=== PATIENT | male | born 1970 | race Caucasian/White ===

== ENCOUNTER → 2018-01-01 | Day surgery (SDC) | payer OTHER ==
[~2018-01-01] VITALS: Ht 172.7 cm; Wt 92.5 kg
[~2018-01-01] MED LIST: TOPROL XL25 M1 PO
--- NOTE | 2018-01-01 11:35 | RADIOLOGY REPORT ---
EXAMINATION: XR PORTABLE CHEST CLINICAL INFORMATION: Mediastinoscopy, bronch. COMPARISON: Chest CT 11/29/2017. TECHNIQUE: Portable frontal view of the chest was obtained. FINDINGS: The lungs are clear without consolidation, edema, or effusion. There is no pneumothorax. The cardiomediastinal silhouette appears normal. Known mediastinal adenopathy is better defined on the prior cross-sectional imaging. The osseous structures are intact. IMPRESSION: No active disease in the chest.
--- NOTE | 2018-01-01 13:50 | Operative Report ---
Operative/Inv Procedure Report Surgery Date: 01/01/18 Name of Procedure: Bronchoscopy mediastinoscopy Pre-Operative Diagnosis: Mediastinal lymphadenopathy Post-Operative Diagnosis: Granulomatous inflammation Estimated Blood Loss: scant Surgeon/Science Writer: Rosa Isela Gutierrez MD,Gabriel [place] Anesthesia: general endotracheal tube Operative/Procedure Note Note: After placement of monitoring lines and induction of general anesthesia a fiberoptic bronchoscopy was performed through the endotracheal tube. The endobronchial anatomy was normal. There were no endobronchial lesions noted. The patient's neck and chest were then prepped and draped in a sterile fashion. Small incision was made above the sternal notch and carried down to pretracheal fascia. There was a significant reactive process in the posterior mediastinum with fibrosis but the posterior mediastinum was entered bluntly and easily with blunt dissection. The mediastinoscope was advanced to the level of the apollo. Lymph nodes were freed from level II and level IV. Intraoperative frozen section disclosed evidence of granulomas and no evidence of malignancy. Lymph nodes specimens were taken from level II and level IV and sent for permanent histology flow cytometry and cultures. Hemostasis was achieved with electrocautery and with Surgicel packing that was left behind. The wound was then closed in layers with deep Vicryl suture followed by running Vicryl subcuticular suture. The patient tolerated the procedure well and was brought to the recovery room awake and extubated in stable condition. CC: Nikolai ARSHAD,Narciso Simmons
== END ==
LOC: STS 02:45
DX: I88.9 Nonspecific lymphadenitis, unspecified (principal); R53.83 Other fatigue; K76.0 Fatty (change of) liver, not elsewhere classified; M54.9 Dorsalgia, unspecified
CPT/HCPCS: 87070; 87075; 71045; J0690; J2250